=== PATIENT | female | born 1955 ===

== ENCOUNTER → 2020-11-16 | Outpatient (CLI) | payer MEDICARE ==
[2020-11-16 20:50] LABS: Basophils # (A) 0.06 X 10*3/uL (0.00-0.10); Basophils % (A) 0.6 %; Eosinophils # (A) 0.17 X 10*3/uL (0.04-0.35); Eosinophils % (A) 1.8 %; HCT 37.6 % (37.2-46.3); Lymphocytes # (A) 2.97 X 10*3/uL (0.90-5.00); Lymphocytes % (A) 31.8 %; MCH 27.8 pg (27.0-32.0); MCHC 31.9 g/dL (32.0-37.0); MCV 87.2 fL (80.0-97.0); Mean Platelet Volume 10.7 fL (9.5-12.2); Monocytes # (A) 0.55 X 10*3/uL (0.20-1.00); Monocytes % (A) 5.9 %; Neutrophils # (A) 5.54 X 10*3/uL (1.80-7.70); Neutrophils % (A) 59.5 %; Platelet Count 375 X 10*3/uL (140-440); RBC 4.31 X 10*6/uL (4.10-5.20); WBC 9.33 X 10*3/uL (4.50-10.00)
[2020-11-16 21:28] LABS: ALT 24 U/L (8-44); AST 21 U/L (13-35); C Reactive Protein <0.4 mg/dL (0.0-0.8); Calcium 9.5 mg/dL (8.7-10.3); Carbon Dioxide 26.7 mmol/L (21.6-31.8); Chloride 104 mmol/L (96-109); Creatine Kinase 51 U/L (26-186); Glucose 305 mg/dL (70-110); Non-African American GFR(CKD) 58.7 (60.0-200.0); Potassium 5.3 mmol/L (3.5-5.5); Rheumatoid Factor, Qnt 4 IU/mL (0-15); Sodium 139 mmol/L (135-145); Uric Acid 3.6 mg/dL (2.9-7.7)
[2020-11-16 21:32] LABS: Cyclic Citrull Pep IgG Unit <0.5 U/mL; Cyclic Citrullinated Pep IgG NEGATIVE (NEGATIVE)
[2020-11-16 22:52] LABS: Erythrocyte Sedimentation Rate 13 mm/Hr (0-30)
[2020-11-17 11:17] LABS: Angiotensin-1 Converting Enz. 42 U/L (8-52)
[2020-11-17 15:05] LABS: HLA B27 NEGATIVE
== END | disposition home or self-care (01) ==
LOC: LABWHC1 12:57
PROVIDERS: ATTEND Orthopaedic Surgery
DX: M79.671 Pain in right foot (principal); M19.071 Primary osteoarthritis, right ankle and foot; M67.471 Ganglion, right ankle and foot
CPT/HCPCS: 36415; 80048; 82164; 82306; 82550; 83520; 84439; 84443; 84450; 84460; 84550; 85025; 85652; 86038; 86140; 86200; 86431; 86812